=== PATIENT | female | born 1995 | race American Indian/Alaskan Native ===

== ENCOUNTER 2020-05-27 22:14 | Emergency (ER) | payer MEDICAID | END 2020-05-28 | disposition left against medical advice (07) | LOC: ED 22:14 | DX: R51.9 Headache, unspecified (principal); R11.2 Nausea with vomiting, unspecified; Z53.21 Procedure and treatment not carried out due to patient leaving prior to being seen by health care provider ==

== ENCOUNTER 2021-01-14 07:19 | Emergency (ER) | payer SELFPAY ==
[2021-01-14 07:28] VITALS: BP 120/65
[2021-01-14] MEDS ORDERED: SODIUM CHLORIDE 0.9% 1000 ML 1,000 ML IV ONE (07:48)
[2021-01-14] MEDS ORDERED: ONDANSETRON 4 MG/2 ML INJ IV ONE (07:48)
--- NOTE | 2021-01-14 07:51 | Emergency Department Report ---
ED General Adult HPI - General Chief complaint: Nausea/Vomiting/Diarrhea Stated complaint: VOMITING Time Seen by Provider: 01/14/21 07:34 Source: patient Mode of arrival: Ambulatory Limitations: No Limitations - History of Present Illness Initial comments: The patient was evaluated in the emergency department for symptoms described in the history of present illness. He/she was evaluated in the context of the global COVID-19 pandemic, which necessitated consideration that the patient might be at risk for infection with the virus that causes COVID-19. Institutional protocols and algorithms that pertain to the evaluation of patients at risk for COVID-19 are in a state of rapid change based on information released by regulatory bodies including the CDC and federal and state organizations. These policies and algorithms were followed during the samantha wallace's care in the emergency department. Please note that these policies, procedures and recommendations changed on a rapid basis. 25-year-old -[place] female presents to the emergency room for vomiting x1 day. Patient reports her last menstrual period was 12/03/2020. She does not have any diarrhea. Last vomited 5 minutes prior to coming in the exam room. She complains of a headache and body aches and has been taken ibuprofen. She denies cigarette use of marijuana use but states she drinks social. She does have a primary care provider at [facility]. She is 2 para 0 with 2 ectopic pregnancies this year. She denies any vaginal bleeding no vaginal pain. She states she did not lose her to. She is not Covid vaccinated and has not tested in over a year. Severity scale (0 -10): 0 - Related Data Previous Rx's Medication Instructions Recorded Last Taken Type Ibuprofen [Motrin] 800 mg PO Q8HR PRN #30 tablet 06/24/18 01/13/21 20:00 Rx Nitrofurantoin Lander/M-Cryst 100 mg PO Q12HR 7 Days #14 capsule 01/14/21 Unknown Rx [Macrobid CAP] Allergies Allergy/AdvReac Type Severity Reaction Status Date / Time No Known Allergies Allergy Verified 01/14/21 07:29 ED Review of Systems ROS: Stated complaint: VOMITING Other details as noted in HPI ED Past Medical Hx - Social History Smoking Status: Current Every Day Smoker Substance Use Type: Alcohol, Marijuana - Medications Home Medications: Home Medications Medication Instructions Recorded Confirmed Last Taken Type Ibuprofen [Motrin] 800 mg PO Q8HR PRN #30 tablet 06/24/18 01/13/21 20:00 Rx Nitrofurantoin [place]ander/M-Cryst 100 mg PO Q12HR 7 Days #14 capsule 01/14/21 Unknown Rx [Macrobid CAP] ED Physical Exam - General Limitations: No Limitations General appearance: alert, in no apparent distress - Head Head exam: Present: atraumatic, normocephalic - Eye Eye exam: Present: normal appearance - ENT ENT exam: Present: mucous membranes moist - Neck Neck exam: Present: normal inspection - Respiratory Respiratory exam: Present: normal lung sounds bilaterally. Absent: respiratory distress - Cardiovascular Cardiovascular Exam: Present: regular rate, normal rhythm. Absent: systolic murmur, diastolic murmur, rubs, gallop - GI/Abdominal GI/Abdominal exam: Present: soft, normal bowel sounds - Extremities Exam Extremities exam: Present: normal inspection - Back Exam Back exam: Present: normal inspection - Neurological Exam Neurological exam: Present: alert, oriented X3 - Psychiatric Psychiatric exam: Present: normal affect, normal mood - Skin Skin exam: Present: warm, dry, intact, normal color. Absent: rash ED Course Vital Signs 01/14/21 07:27 Temperature 98.3 F Pulse Rate 89 Respiratory 14 Rate Blood Pressure 120/65 [Right] O2 Sat by Pulse 98 Oximetry ED Medical Decision Making - Lab Data Result diagrams: 01/14/21 08:20 01/14/21 08:20 - Radiology Data Radiology results: report reviewed [address] [address] Ultrasound Report Signed Patient: FLEX RODRÍGUEZ MR#: [id number] : 1995 Acct:[id number] Age/Sex: 25 / F ADM Date: 01/14/21 Loc: ED Attending Dr: Ordering Physician: SAMANTHA KRAMER Date of Service: 01/14/21 Procedure(s): US OB transvaginal Accession Number(s): [id number] cc: SAMANTHA KRAMER ULTRASOUND OBSTETRIC INDICATION / CLINICAL INFORMATION: Positive test ectopic pregnancies. TECHNIQUE: Transabdominal and Transvaginal. COMPARISON: None available. FINDINGS: GESTATIONAL SAC: Well-defined oval shape and intrauterine in location. YOLK SAC: No significant abnormality. EMBRYO/FETUS: No significant abnormality. - [place]-Rump Length = 0.58 cm = 6, 3 weeks, days - Heart Rate, beats per minute (if present) = 156 ADNEXA: No significant abnormality. FREE FLUID: None. ADDITIONAL FINDINGS: None. IMPRESSION: 1. Single, living intrauterine with estimated sonographic age of 6, 3 weeks, days. Signer Name: Maxwell Recinos MD Signed: 01/14/2021 1:22 PM Workstation Name: [id number] Transcribed By: SB Dictated By: MAXWELL RECINOS MD Electronically Authenticated By: MAXWELL RECINOS MD Signed Date/Time: 01/14/21 132 DD/ 132 TD/TT: Print - Medical Decision Making 25-year-old -[place] female presents to the emergency room for vomiting x1 day. Patient reports her last menstrual period was 12/03/2020. She does not have any diarrhea. Last vomited 5 minutes prior to coming in the exam room. She complains of a headache and body aches and has been taken ibuprofen. She denies cigarette use of marijuana use but states she drinks social. She does have a primary care provider at [facility]. She is 2 para 0 with 2 ectopic pregnancies this year. She denies any vaginal bleeding no vaginal pain. She states she did not lose her to. She is not Covid vaccinated and has not tested in over a year. Orders have been placed for urinalysis serum hCG CBC CMP lipase INT normal saline Zofran. Critical care attestation.: If time is entered above; I have spent that time in minutes in the direct care of this critically ill patient, excluding procedure time. ED Disposition Clinical Impression: Nausea and vomiting during , UTI (urinary tract infection) during Qualifiers: Weeks of gestation: less than 8 weeks Qualified Code(s): Z3A.01 - Less than 8 weeks gestation of Disposition: 01 HOME / SELF CARE / HOMELESS Is pt being admited?: No Does the pt Need Aspirin: No Condition: Stable Instructions: and Urinary Tract Infection Additional Instructions: Urinalysis shows that you have a slight urinary tract infection. Ultrasound shows that you are 6 weeks and 3 days . I would like for you to start your vitamins. I would like for you to increase your fluid intake co mplete your antibiotics for your urinary tract. Follow-up with me [facility]PRESENT[facility]. Tylenol is the only pain medicine that she can take at this time. Prescriptions: Nitrofurantoin Lander/M-Cryst [Macrobid CAP] 100 mg PO Q12HR 7 Days #14 capsule Referrals: PRIMARY CARE, [Primary Care Provider] - 3-5 Days [facility] [Provider Group] - 3-5 Days [facility] [Provider [facility]] - 3-5 Days Forms: Work/School Release Form(ED) Time of Disposition: 14:27
[2021-01-14 08:48] LABS: Basophils % (Auto) 0.2 % (0.0-1.8); Eosinophils % (Auto) 0.1 % (0.0-4.3); Hematocrit 42.6 % (30.3-42.9); Hemoglobin 14.1 gm/dl (10.1-14.3); Lymphocytes # (Auto) 1.3 K/mm3 (1.2-5.4); Lymphocytes % (Auto) 16.3 % (13.4-35.0); Mean Corpuscular HGB Conc 33 % (30-34); Mean Corpuscular Volume 89 fl (79-97); Monocytes # (Auto) 0.6 K/mm3 (0.0-0.8); Monocytes % (Auto) 7.1 % (0.0-7.3); Platelet Count 251 K/mm3 (140-440); Red Blood Count 4.82 M/mm3 (3.65-5.03); Red Cell Distribution Width 14.6 % (13.2-15.2)
[2021-01-14 09:09] LABS: Alanine Aminotransferase 11 units/L (7-56); Albumin 4.4 g/dL (3.9-5); Blood Urea Nitrogen 7 mg/dL (7-17); Hemolysis Index 122
[2021-01-14 09:13] LABS: BUN/Creatinine Ratio 18
[2021-01-14] MEDS ORDERED: IBUPROFEN 600 MG TAB PO ONE (11:26)
[2021-01-14] MEDS ORDERED: ACETAMINOPHEN 325 MG TAB PO ONE (11:27)
[2021-01-14 13:26] LABS: Bilirubin,Urine NEG (Negative); Blood,Urine NEG (Negative); Color,Urine Yellow (Yellow); Mucus,Urine FEW /HPF; Urobilinogen,Urine < 2.0 mg/dL (<2.0)
--- NOTE | 2021-01-14 13:26 | Ultrasound Report ---
ULTRASOUND OBSTETRIC INDICATION / CLINICAL INFORMATION: Positive test ectopic pregnancies. TECHNIQUE: Transabdominal and Transvaginal. COMPARISON: None available. FINDINGS: GESTATIONAL SAC: Well-defined oval shape and intrauterine in location. YOLK SAC: No significant abnormality. EMBRYO/FETUS: No significant abnormality. - [place]-Rump Length = 0.58 cm = 6, 3 weeks, days - Heart Rate, beats per minute (if present) = 156 ADNEXA: No significant abnormality. FREE FLUID: None. ADDITIONAL FINDINGS: None. IMPRESSION: 1. Single, living intrauterine with estimated sonographic age of 6, 3 weeks, days. Signer Name: aMxwell Recinos MD Signed: 01/14/2021 1:22 PM Workstation Name: [id number]
--- NOTE | 2021-01-14 13:26 | Ultrasound Report ---
ULTRASOUND OBSTETRIC INDICATION / CLINICAL INFORMATION: Positive test ectopic pregnancies. TECHNIQUE: Transabdominal and Transvaginal. COMPARISON: None available. FINDINGS: GESTATIONAL SAC: Well-defined oval shape and intrauterine in location. YOLK SAC: No significant abnormality. EMBRYO/FETUS: No significant abnormality. - [place]-Rump Length = 0.58 cm = 6, 3 weeks, days - Heart Rate, beats per minute (if present) = 156 ADNEXA: No significant abnormality. FREE FLUID: None. ADDITIONAL FINDINGS: None. IMPRESSION: 1. Single, living intrauterine with estimated sonographic age of 6, 3 weeks, days. Signer Name: Maxwell Recinos MD Signed: 01/14/2021 1:22 PM Workstation Name: [id number]
== END 2021-01-14 14:52 | disposition home or self-care (01) ==
LOC: ED 07:19
DX: O21.9 Vomiting of pregnancy, unspecified (principal); O23.40 Unspecified infection of urinary tract in pregnancy, unspecified trimester; Z3A.01 Less than 8 weeks gestation of pregnancy; F17.200 Nicotine dependence, unspecified, uncomplicated; F10.20 Alcohol dependence, uncomplicated; F12.90 Cannabis use, unspecified, uncomplicated
CPT/HCPCS: 36415; 76801; 76817; 80053; 81001; 83690; 84702; 85025; 87086; 96361; 96374; 99284; J2405; J7030; Q0162